=== PATIENT | female | born 1980 | race Caucasian/White ===

== ENCOUNTER 2024-02-01 16:22 | Emergency (ER) | payer OTHER ==
[2024-02-01 16:41] VITALS: BP 126/82; PULSE 70; RESP 18; TEMP 97.6; BMI 21.6
[2024-02-01] MEDS ORDERED: KETOROLAC TROMETHAMINE 30 MG/1 ML VIAL ONE (17:19)
[2024-02-01] MEDS: KETOROLAC TROMETHAMINE 30 MG/1 ML VIAL IM ONE (17:30)
== END 2024-02-01 18:04 | disposition home or self-care (01) ==
LOC: JERFT 16:22
PROC: 3E0133Z Introduction of Anti-inflammatory into Subcutaneous Tissue, Percutaneous Approach (ICD-10-PCS; principal; 2024-02-01)
DX: R07.81 Pleurodynia (principal); V49.40XA Driver injured in collision with unspecified motor vehicles in traffic accident, initial encounter; Y92.410 Unspecified street and highway as the place of occurrence of the external cause
CPT/HCPCS: 71045-TC-FY; 71101-TC-LT-FY; 99284-25